=== PATIENT | female | born 1965 | race Asian ===

== ENCOUNTER 2016-08-30 12:28 | Day surgery (SDC) | payer OTHER ==
[~2016-08-30] VITALS: Ht 147.3 cm; Wt 77.1 kg
[2016-08-30] MEDS ORDERED: VITAMIN D (12:53)
[2016-08-30] MEDS ORDERED: FLUTICASONE (12:53)
[2016-08-30] MEDS ORDERED: TOLTERODINE (12:53)
[2016-08-30] MEDS ORDERED: CYCLOBENZAPRINE (12:53)
[2016-08-30] MEDS ORDERED: METFORMIN (12:53)
[2016-08-30] MEDS ORDERED: AMLODIPINE (12:53)
[2016-08-30] MEDS ORDERED: ASPIRIN (12:53)
[2016-08-30 13:09] VITALS: Ht 147.3 cm; Wt 77.1 kg
[2016-08-30 13:23] VITALS: BP 105/61; PULSE 82; RESP 18
[2016-08-30] MEDS ORDERED: FENTAnyl 50 MCG/ML VIAL ONE (14:09)
[2016-08-30] MEDS ORDERED: MIDAZOLAM 1 MG/ML 2 ML INJ ONE ×2 (14:09→14:10)
[2016-08-30 14:30] VITALS: BP 100/74; RESP 20
--- NOTE | 2016-09-01 08:49 | GILP ---
DATE OF PROCEDURE: 08/30/2016 PREOPERATIVE DIAGNOSIS: History of incomplete colonoscopy. The patient was sent for colonoscopy again. PROCEDURE PERFORMED: Colonoscopy up to right colon up to ileocecal valve. POSTOPERATIVE DIAGNOSIS: 1. Very poor prep in the right colon. 2. Diverticulosis in the right colon. 3. Very sticky stool, unable to even wash with injector water. DESCRIPTION OF PROCEDURE: The patient was put in the left lateral decubitus after obtaining informed consent. The patient was sedated. IV Versed 3 mg and 75 mcg of fentanyl. Rectal exam done. Advanced the pediatric Olympus video colonoscope all the way to the right colon with some difficulty due to poor prep. Washed throughout the procedure with lavage with water. The right colon had some diverticulosis. Very sticky stool in the right colon. Unable to see the appendix. After several attempts to clean this area, it failed. The scope was slowly withdrawn. No gross lesions noted in the right colon, mid colon, transverse colon or in the descending colon. Sigmoid colon had occasional diverticula again noted. The rectum was unremarkable. Upon removal of the scope, the patient had no complications. PLAN: Dear Dr. Arik Cho, This patient had colonoscopy attempted twice, once in [place] a year ago and now both times I believe, I would consider poor prep. I would recommend that she go for a barium enema at least to document that we have studied thoroughly and keep an eye on stool for occult blood. Next time she should maybe have colonoscopy in the next three to five years if BE is negative. Only that will be decided after the barium enema. Dictated By: Joycelyn Chambers MD /james/shadi /Document#: [id number] ; DR. ARIK DAY
== END 2016-08-30 18:01 | disposition home or self-care (01) ==
LOC: GIL 12:28
PROVIDERS: ATTEND Internal Medicine
DX: Z12.11 Encounter for screening for malignant neoplasm of colon (principal); K57.90 Diverticulosis of intestine, part unspecified, without perforation or abscess without bleeding; I10 Essential (primary) hypertension; E11.9 Type 2 diabetes mellitus without complications
CPT/HCPCS: 45378; J2250; J3010

== ENCOUNTER → 2016-12-20 | Outpatient (CLI) | payer OTHER ==
[~2016-12-20] MED LIST: AMLODIPINE; ASPIRIN; CYCLOBENZAPRINE; FLUTICASONE; IOHEXOL 100 ML ONE; METFORMIN; TOLTERODINE; VITAMIN D
--- NOTE | 2016-12-20 13:45 | RADRPT ---
PROCEDURE: Double contrast barium enema. CLINICAL INDICATION: Abdomen pain. TECHNIQUE: Barium and air was administered via a rectal tube and several spot and overhead radiogr aphs were obtained. Fluoroscopy time is 1.3 minutes and 16 images were obtained. COMPARISON: No prior study is available for comparison. FINDINGS: There is no obstruction. There is diverticulosis of the sigmoid colon. There is no evidence of diverticulitis. The appendix opacifies and appears unremarkable. The postevacuation image demonstrates good emptying of the colon. IMPRESSION: 1. Diverticulosis. 2. Otherwise unremarkable air contrast barium enema. RPTAT: QQ .Mo Lowe MD, MD Date Time Electronically viewed and signed by .Mo Lowe MD, on 12/20/2016 13:45 .R/
== END | disposition home or self-care (01) ==
LOC: RAD 10:56
PROVIDERS: ATTEND Internal Medicine
DX: Z12.11 Encounter for screening for malignant neoplasm of colon (principal); K57.90 Diverticulosis of intestine, part unspecified, without perforation or abscess without bleeding
CPT/HCPCS: 74280; Q9967